=== PATIENT | male | born 1955 | race Caucasian/White ===

== ENCOUNTER 2019-10-26 01:49 | Day surgery (SDC) | payer MEDICARE, SELFPAY ==
[2019-10-17 08:40] VITALS: BMI 25.1
[2019-10-26] VITALS (9 sets, daily range): BP systolic 116–166; BP diastolic 75–99; PULSE 65–77; RESP 12–16; TEMP 36.1–36.2; O2SAT 97–100
--- NOTE | ~2019-10-26 | XR_ITS ---
EXAMINATION: XR abdomen/kub 1V DATE: 10/26/2019 09:26 INDICATION: Calculus of kidney. TECHNIQUE: A supine view of the abdomen on 2 radiographs was obtained. COMPARISON: Abdomen radiographs 09/11/2019 FINDINGS: There are no dilated loops of bowel. There is a 23 x 12 mm stone in right kidney. Surgical clips in the right upper quadrant are likely from cholecystectomy. IMPRESSION: 1. 23 x 12 mm stone in right kidney. Reviewed, dictated and finalized at location A. NCE RECESSER
--- NOTE | 2019-10-26 09:21 | PM.HPGS ---
History of Present Illness History of Present Illness Consent: Risks, benefits, and alternatives have been discussed and questions answered. Patient agrees to proceed with procedure. Chief complaint: Right Kidney Stone Narrative: Rambo Batres Jr. is a 64 year old male with history of urolithiasis requiring ESWL in 03/2019. Had known residual stones and present for ESWL to right kidney stone. Review of Systems Constitutional: Constitutional: Denies chills, Denies fatigue, Denies fever(s) and Denies headache(s) Eyes: Eyes: Denies blurry vision ENT: Denies vertigo, Denies dizziness, Denies headache(s) and Denies sore throat Cardiovascular: Cardiovascular: Denies chest pain, Denies syncope, Denies lightheadedness, Denies palpitations, Denies dyspnea and Denies dyspnea on exertion Respiratory: Respiratory: Denies hemoptysis, Denies dyspnea and Denies dyspnea on exertion Gastrointestinal: Gastrointestinal: Denies melena, Denies bloating, Denies hematochezia, Denies change in bowel habits, Denies change in stool character, Denies constipation, Denies diarrhea and Denies vomiting Genitourinary: Genitourinary: Denies hematuria, Denies dysuria, Denies testicular pain, Denies urinary frequency, Denies urinary hesitancy and Denies urinary urgency Integumentary/Breasts: Skin/Breast: Denies pruritus, Denies lesions and Denies rash Neurologic: Denies confusion, Denies vertigo, Denies dizziness, Denies syncope and Denies headache(s) Psychiatric: Psychiatric: Denies anxiety, Denies change in appetite and Denies confusion Endocrine: Endocrine: Denies fatigue and Denies palpitations Meds Home Medications and Allergies Home Medications Medication Instructions Recorded Confirmed Type levothyroxine 175 mcg tablet 200 mcg PO DAILY 10/03/19 10/17/19 History sildenafil 100 mg tablet 100 mg PO DAILY PRN 10/03/19 10/17/19 History coenzyme Q10 [CoQ-10] 100 mg PO DAILY 10/17/19 10/17/19 History ferrous sulfate [iron] 325 mg PO DAILY 10/17/19 10/17/19 History ibuprofen 400 mg PO BID 10/17/19 10/17/19 History lutein 20 mg PO DAILY 10/17/19 10/17/19 History magnesium 500 mg PO BID 10/17/19 10/17/19 History multivitamin 1 cap PO DAILY 10/17/19 10/17/19 History omega 9-hwo-kix-fish oil [Fish Oil] 1 cap PO BID 10/17/19 10/17/19 History Allergies Allergy/AdvReac Type Severity Reaction Status Date / Time No Known Allergies Allergy Verified 10/17/19 08:35 Exam Const: General: healthy appearing, comfortable, no acute distress and well developed; No confusion Nutritional Appearance: well nourished Orientation/consciousness: patient oriented x3 and No confusion HENMT: Head: normocephalic and atraumatic Ears: external ears normal Face and sinus: normal facial exam Mouth: Yes lip normal Teeth and gingiva: dentition normal Eyes: General: appearance normal, both eyes and all related structures Alignment and Position: alignment normal Eyelids: eyelids normal Cornea: corneas normal Pupils: Equal, round and reactive pupils present EOM: EOMs intact bilaterally Neck: Neck: normal visual inspection, full ROM and no JVD Chest: Chest palpation & inspection: normal inspection of the chest Resp: Effort & Inspection: normal respiratory effort and no use of accessory muscles Auscultation: clear to auscultation bilaterally Cardio: Jugular venous distension: no JVD Rate: regular rate Rhythm: regular rhythm GI: Inspection: normal to inspection GI Palp: No abdominal tenderness, No Guarding due to palpation present (GI) and No Rebound tenderness present Auscultation: normal bowel sounds : General: Yes bladder normal to palpation and No CVA tenderness Back/Spine/Pelvis: Back: No CVA tenderness Skin: General skin exam: normal color and no rashes or lesions noted Neuro: General: patient oriented x3, no focal motor deficits and No confusion Cranial nerves: Yes Equal, round and reactive pupils present Speech: normal speech Extrem: General: norm
[2019-10-26] MEDS: LACTATED RINGERS 1,000 ML 30 ML IV CONT ×2 (10:00→13:57)
--- NOTE | 2019-10-26 10:34 | P.PNAN_ITS ---
Anes - Initial Pre Proc Eval Procedure: Operation Date: 10/26/19 11:30 Proposed Procedures p Right Renal Extracorporeal Shock Wave Lithotripsy - Ricardo Rahman MD Date/Time: 10/26/19 10:34 Surgeon: Ricardo Rahman MD Pre Op Diagnosis: Right Kidney Stone Patient Data Age: 64 Gender: M Height: 6 ft 1 in Weight: 88.2 kg Last Vital Signs Temp 97 F L 10/26/19 09:41 Pulse 77 10/26/19 09:41 Resp 16 10/26/19 09:41 BP 163/95 H 10/26/19 09:41 Pulse Ox 99 10/26/19 09:41 Allergies Allergy/AdvReac Type Severity Reaction Status Date / Time No Known Allergies Allergy Verified 10/26/19 09:32 Home Medications Medication Instructions Recorded Confirmed Type levothyroxine 175 mcg tablet 200 mcg PO DAILY 10/03/19 10/26/19 History sildenafil 100 mg tablet 100 mg PO DAILY PRN 10/03/19 10/26/19 History coenzyme Q10 [CoQ-10] 100 mg PO DAILY 10/17/19 10/26/19 History ferrous sulfate [iron] 325 mg PO DAILY 10/17/19 10/26/19 History ibuprofen 400 mg PO BID 10/17/19 10/26/19 History lutein 20 mg PO DAILY 10/17/19 10/26/19 History magnesium 500 mg PO BID 10/17/19 10/26/19 History multivitamin 1 cap PO DAILY 10/17/19 10/26/19 History omega 2-det-irv-fish oil [Fish Oil] 1 cap PO BID 10/17/19 10/26/19 History Patient hx anesthesia problems: none Family hx anesthesia problems: none [facility] Past Medical History Medical History (Updated 10/26/19 @ 10:33 by John Shrestha MD) Hypertension Hypothyroidism Anes - Eval Final PreProcedure Day of Procedure 10/26/19 10:34 Patient weight: normal Heart: regular rate and rhythm Lungs: clear to auscultation Airway: Mallampati scale class II Neurological: alert and oriented Last oral intake: >/= 8 hours ASA classification: II Emergent: no Anesthetic plan: proceed Anesthesia type and monitoring: general LMA and standard monitoring Informed Consent: The patient's anesthetic plan and its attendant risks and benefits were discussed with the patient/family/POA. Questions were solicited and answers provided to the satisfaction of the patient/family/POA.
[2019-10-26] MEDS: ceFAZolin 2 GM/D5W 50 ML 2 GM/50 ML BAG IVPB (12:11)
--- NOTE | 2019-10-26 14:04 | PM.PROC ---
Procedure Note - Detailed Date of procedure: 10/26/19 Pre-op diagnosis: Right Kidney Stone Post-op diagnosis: same Procedure performed: Right Description of procedure: The patient was brought to the operative suite where he was placed in the supine position on the Dornier lithotripsy table. The focal point of the lithotripter was placed at a 14mm right lowr calyceal calculus. A total of 2500 shocks were delivered at a power setting of 7. There appeared to be good fragmentation of the stone. The patient tolerated the procedure well and was taken to the recovery room in good condition. Anesthesia: GLMA Surgeon: Ricardo Rahman MD Estimated blood loss (mL): 0 Drains: No Packing: No Pathology: yes Complications: No immediate complications Condition: stable Disposition: PACU
== END 2019-10-26 15:25 | disposition home or self-care (01) ==
PROVIDERS: PCP Family Medicine; Visit Provider Urology
PROC: (CPT 50590; principal; 2019-10-26 11:30)
DX: N20.0 Calculus of kidney (principal); I10 Essential (primary) hypertension; E03.9 Hypothyroidism, unspecified
CPT/HCPCS: 50590; 74018; J0131; J0690; J1100; J2250; J2405; J2704; J7120

== ENCOUNTER → 2019-11-30 08:59 | Outpatient (CLI) | payer MEDICARE, SELFPAY ==
--- NOTE | ~2019-11-30 | XR_ITS ---
XR abdomen/kub 1V 11/30/2019 09:27 Indication: Renal stone Procedure: KUB Comparison: Comparison to multiple prior studies sequentially, with oldest reviewed study dated 04/05. Findings: Bowel gas pattern is nonobstructive. There are right renal stones, largest 2 cm greatest di mension. There are cholecystectomy clips are present. No acute osseous abnormality. Moderate osteoart hritis of the hips. Impression: 1: Right nephrolithiasis. Reviewed, dictated and finalized at location B. NG DETAIL DRAFTSPERSON Impression: 1: Right nephrolithiasis.
== END ==
PROVIDERS: PCP Family Medicine; Visit Provider Urology
DX: N20.0 Calculus of kidney (principal)
CPT/HCPCS: 74018

== ENCOUNTER → 2020-05-21 14:05 | Outpatient (CLI) | payer MEDICARE, SELFPAY ==
--- NOTE | ~2020-05-21 | XR_ITS ---
EXAMINATION: XR abdomen/kub 1V DATE: 05/21/2020 14:58 INDICATION: Calculus of kidney. TECHNIQUE: A supine view of the abdomen on 2 radiographs was obtained. COMPARISON: Abdomen radiographs 11/30/2019, CT abdomen and pelvis 03/20/2019 FINDINGS: There are no dilated loops of bowel. There are 3.0 cm and 3 mm stones in in right kidney. S urgical clips in the right upper quadrant are likely from cholecystectomy. IMPRESSION: 1. Stones in right kidney. Reviewed, dictated and finalized at location B. IMPRESSION: 1. Stones in right kidney.
== END ==
PROVIDERS: Visit Provider Urology
DX: N20.0 Calculus of kidney (principal)
CPT/HCPCS: 74018

== ENCOUNTER 2020-06-06 02:18 | Day surgery (SDC) | payer MEDICARE, SELFPAY ==
[2020-05-30 09:45] VITALS: BMI 26.0
--- NOTE | 2020-06-05 07:58 | P.HP_ITS ---
History of Present Illness History of Present Illness Consent: Risks, benefits, and alternatives have been discussed and questions answered. Patient agrees to proceed with procedure. Chief complaint: Renal Stones Narrative: Rambo Batres Jr. is a 65 year old male who is known to have stones in his right kidney on several prior occasions. Following lithotripsy in 2019 he was left with small residual fragments in the right kidney. It was somewhat delayed in follow-up because of the COVID pandemic and, unfortunately, recent KUB shows reaccumulation of a large stone in the right kidney measuring up to 3 cm. I discussed treatment options including repeated ESWL treatments versus percutaneous nephrolithotomy in he opted for the former. He is aware that this may not be effective we may have to do on alternative procedure in the future. Review of Systems Cardiovascular: Cardiovascular: Denies chest pain, Denies lightheadedness, Denies palpitations and Denies dyspnea Respiratory: Respiratory: Denies dyspnea Gastrointestinal: Gastrointestinal: Denies diarrhea, Denies nausea and Denies vomiting Genitourinary: Genitourinary: Denies hematuria and Denies dysuria Endocrine: Endocrine: Denies palpitations PMFSH Past Medical History Medical History Hypertension Hypothyroidism Social History Social History Smoking status: Never smoker Spiritual care concerns: No Meds Home Medications and Allergies Home Medications Medication Instructions Recorded Confirmed Type levothyroxine 175 mcg tablet 200 mcg PO DAILY 10/03/19 05/30/20 History coenzyme Q10 [CoQ-10] 100 mg PO DAILY 10/17/19 05/30/20 History ferrous sulfate [iron] 325 mg PO DAILY 10/17/19 05/30/20 History lutein 20 mg PO DAILY 10/17/19 05/30/20 History magnesium 500 mg PO BID 10/17/19 05/30/20 History multivitamin 1 cap PO DAILY 10/17/19 05/30/20 History omega 9-hxq-ryi-fish oil [Fish Oil] 1 cap PO BID 10/17/19 05/30/20 History testosterone cypionate 100 mg IM WEEKLY 05/30/20 05/30/20 History Allergies Allergy/AdvReac Type Severity Reaction Status Date / Time No Known Allergies Allergy Verified 05/30/20 09:45 Exam Const: General: no acute distress Resp: Effort & Inspection: normal respiratory effort GI: Inspection: non-distended GI Palp: No abdominal tenderness and No Guarding due to palpation present (GI) Auscultation: normal bowel sounds Assessment and Plan Assessment and plan (1) Kidney stone on right side: Code(s): N20.0 - Calculus of kidney Status: Acute Assessment and Plan: * Cystoscopy, right ureteral stent placement and right ESWL.
[2020-06-06] VITALS (8 sets, daily range): BP systolic 113–143; BP diastolic 75–94; PULSE 58–76; RESP 14–24; TEMP 36.2–36.6; O2SAT 97–100
--- NOTE | ~2020-06-06 | XR_ITS ---
EXAMINATION: XR abdomen/kub 1V INDICATION: Right-sided stone TECHNIQUE: Supine view of the abdomen is obtained. COMPARISON: 05/21/2020 FINDINGS: An unchanged 3 cm stone projects in the right kidney. The previously described 3 mm stone o f the right kidney lower pole is obscured by bowel contents. The bowel gas pattern is normal. Cholecy stectomy clips are noted in the right upper quadrant. There is moderate bilateral hip osteoarthritis. IMPRESSION: 1. 3 cm stone of the right kidney, unchanged. Reviewed, dictated and finalized at location B.
--- NOTE | 2020-06-06 07:06 | WPDHPUPDATE1 ---
History and Physical Update Update Date/Time: 06/06/20 07:06 History and Physical has been reviewed, including an updated exam of the patient. There are NO changes in the patient's condition. Risks, benefits, and alternatives have been discussed and questions answered. Patient agrees to proceed with procedure.
[2020-06-06] MEDS: LACTATED RINGERS 1,000 ML 30 ML IV CONT (10:14)
--- NOTE | 2020-06-06 10:39 | WPDANESEPPF ---
Anes - Initial Pre Proc Eval Procedure: Operation Date: 06/06/20 11:30 Proposed Procedures p Right Renal Extracorporeal Shock Wave Lithotripsy - Ricardo Rahman MD s Cystoscopy With Right Stent Placement - Ricardo Rahman MD Date/Time: 06/06/20 10:39 Surgeon: Ricardo Rahman MD Pre Op Diagnosis: Renal Stones Patient Data Age: 65 Gender: M Height: 6 ft Weight: 87.09 kg Last Vital Signs Temp 36.6 C 06/06/20 10:01 Pulse 73 06/06/20 10:01 Resp 16 06/06/20 10:01 BP 143/89 H 06/06/20 10:01 Pulse Ox 98 06/06/20 10:01 Allergies Allergy/AdvReac Type Severity Reaction Status Date / Time No Known Allergies Allergy Verified 06/06/20 09:50 Home Medications Medication Instructions Recorded Confirmed Type levothyroxine 175 mcg tablet 200 mcg PO DAILY 10/03/19 06/06/20 History coenzyme Q10 [CoQ-10] 100 mg PO DAILY 10/17/19 06/06/20 History ferrous sulfate [iron] 325 mg PO DAILY 10/17/19 06/06/20 History lutein 20 mg PO DAILY 10/17/19 06/06/20 History magnesium 500 mg PO BID 10/17/19 06/06/20 History multivitamin 1 cap PO DAILY 10/17/19 06/06/20 History omega 8-kvp-ewa-fish oil [Fish Oil] 1 cap PO BID 10/17/19 06/06/20 History testosterone cypionate 100 mg IM WEEKLY 05/30/20 06/06/20 History Patient hx anesthesia problems: none Family hx anesthesia problems: none PMFSH Past Medical History Medical History Hypertension Hypothyroidism Social History Social History Smoking status: Never smoker Spiritual care concerns: No Anes - Eval Final PreProcedure Day of Procedure 06/06/20 10:39 Patient weight: overweight Heart: regular rate and rhythm Lungs: clear to auscultation Airway: Mallampati scale class II Neurological: alert and oriented Last oral intake: >/= 8 hours ASA classification: II Emergent: no Anesthetic plan: proceed Anesthesia type and monitoring: general LMA and standard monitoring Informed Consent: The patient's anesthetic plan and its attendant risks and benefits were discussed with the patient/family/POA. Questions were solicited and answers provided to the satisfaction of the patient/family/POA.
[2020-06-06] MEDS: ceFAZolin 2 GM/D5W 50 ML 2 GM/50 ML BAG IVPB (11:49)
--- NOTE | 2020-06-06 12:58 | PM.PROC ---
Procedure Note - Detailed Date of procedure: 06/06/20 Pre-op diagnosis: Renal Stones Post-op diagnosis: same Procedure performed: 1. Cysto., right ureteral stent placement. 2. Right ESWL Description of procedure: The patient was brought to the operative suite where he was placed in the supine position on the Dornier lithotripter table. Flexible cystoscopy was undertaken with a 16F flexible cystoscopy. There were no urethral strictures. The prostatic uretehral estimated length was 2cm. There was no obstruction of the prostatic urethra with small median lobe enlargement. The bladder mucosa was normal and there was a single, orthotopic ureteral orifice bilaterally. A 0.035 glidewire was advanced into the right renal pelvis under fluoroscopy. A 4.8F J-J ureteral stent was positioned with the proximal coil in the renal pelvis and the distal coil in the bladder. The patient was then repositioned in the supine position with the focal point of the lithotriptor on a 3cmm left mid-ureteral calculus. A total of 2500 shocks were delivered at a power setting of 4. There appeared to be moderate fragmentation of the stone. The patient tolerated the procedure well and was taken to the recovery room in good condition. Surgeon: Ricardo Rahman MD Estimated blood loss (mL): 0 Drains: Yes (4.8f right ureteral stent) Packing: No Pathology: none sent Complications: No immediate complications Condition: stable Disposition: PACU
== END 2020-06-06 14:20 | disposition home or self-care (01) ==
PROVIDERS: Visit Provider Urology
PROC: (CPT 50590; principal; 2020-06-06 11:30)
PROC: (CPT 52352; 2020-06-06 11:30)
DX: N20.0 Calculus of kidney (principal); I10 Essential (primary) hypertension; E03.9 Hypothyroidism, unspecified; Z79.899 Other long term (current) drug therapy
CPT/HCPCS: 50590; 52332; 74018; A9270; C1769; C2617; J0690; J1100; J2250; J2405; J2704; J3010; J7120

== ENCOUNTER → 2020-06-16 09:22 | Outpatient (CLI) | payer MEDICARE, SELFPAY ==
--- NOTE | ~2020-06-16 | XR_ITS ---
XR abdomen/kub 1V 06/16/2020 09:50 Indication: Renal stone Procedure: KUB Comparison: Comparison to multiple prior studies sequentially, with oldest reviewed study dated 10/26. Findings: There is a right internal ureteral stent. There are right renal stones. There are multiple right ureteral stones in the proximal and mid ureter. Bowel gas pattern nonobstructive. There are cho lecystectomy clips. Mild lumbar spondylosis with sclerosis of the facet joints. Mild osteoarthritis o f the hips. Impression: 1: Multiple right renal and ureteral stones with internal ureteral stent in expected position. Reviewed, dictated and finalized at location A. Impression: 1: Multiple right renal and ureteral stones with internal ureteral stent in exp ected position.
== END ==
PROVIDERS: Visit Provider Urology
DX: N20.0 Calculus of kidney (principal); N20.1 Calculus of ureter; Z96.0 Presence of urogenital implants
CPT/HCPCS: 74018

== ENCOUNTER → 2020-07-17 10:19 | Outpatient (CLI) | payer MEDICARE, SELFPAY ==
--- NOTE | ~2020-07-17 | XR_ITS ---
XR abdomen/kub 1V 07/17/2020 10:43 Indication: Renal stones Procedure: KUB Comparison: Comparison to multiple prior studies sequentially, with oldest reviewed study dated 02/2020. Findings: Large right renal stone is present presumably in the renal pelvis. There is a right interna l ureteral stent in expected position. There are R distal right ureteral stones near the UVJ adjacent to the stent. There are punctate left renal stones. There are possible bladder stones. Impression: 1: Bilateral renal and distal right ureteral stones. 2: Possible bladder stones. 3: Right internal ureteral stent in expected position. Reviewed, dictated and finalized at location B. Impression: 1: Bilateral renal and distal right ureteral stones. 2: Possible bladder stones. 3: Right internal ureteral stent in expected position.
== END ==
PROVIDERS: Visit Provider Urology
DX: N20.2 Calculus of kidney with calculus of ureter (principal)
CPT/HCPCS: 74018

== ENCOUNTER → 2020-10-17 08:49 | Outpatient (CLI) | payer MEDICARE, SELFPAY ==
--- NOTE | ~2020-10-17 | XR_ITS ---
EXAMINATION: XR abdomen/kub 1V EXAM DATE: 10/17/2020 09:14 INDICATION: Calculus of kidney, rt flank pain. TECHNIQUE: Frontal projection of the upper abdomen, frontal projection lower abdomen/pelvis for inter pretation. Comparison is made to prior examination from 07/17/2020. FINDINGS: Previously seen right double-J ureteral stent has been removed. Large amount of calcificat ion adjacent to the proximal end of the loop and lined up in the distal aspect of the ureter are no l onger present. Moderate amount of colonic stool. There are cholecystectomy clips. No suspicious soft tissue calcifications identified. Overall moderate bony degenerative changes. IMPRESSION: No suspicious calcifications. Reviewed, dictated and finalized at location A. DING CUSTODIAL SUPERVISOR
== END ==
PROVIDERS: Visit Provider Urology
DX: N20.0 Calculus of kidney (principal)
CPT/HCPCS: 74018